=== PATIENT | male | born 1985 | race Two or more races ===

== ENCOUNTER 2017-10-21 12:45 | Emergency (ER) | payer SELFPAY ==
[~2017-10-21] VITALS: Ht 180.3 cm; Wt 122.6 kg
[2017-10-21 13:11] VITALS: Ht 180.3 cm; Wt 122.6 kg
[2017-10-21 14:54] VITALS: BP 120/64
== END 2017-10-21 14:54 | disposition home or self-care (01) ==
LOC: ED 12:45
DX: S81.851A Open bite, right lower leg, initial encounter (principal); J45.909 Unspecified asthma, uncomplicated; W54.0XXA Bitten by dog, initial encounter; Y93.89 Activity, other specified; Y92.488 Other paved roadways as the place of occurrence of the external cause; Y99.8 Other external cause status
CPT/HCPCS: 90715